=== PATIENT | female | born 1980 | race African-American/Black ===

== ENCOUNTER 2016-12-02 08:56 | Emergency (ER) | payer SELFPAY ==
--- NOTE | 2016-12-02 10:31 | ER Document Report ---
ED Eye Complaint - General Chief Complaint: Drainage from Eye Stated Complaint: EYE PROBLEMS Notes: Patient noticed her right eye getting red Nancy and when she awakened from sleep the next morning, she noticed some discharge from the right eye. No symptoms on the left side. Recalls no injury or object getting into her eye. Vision is normal. Does not wear contact lenses. Has not had a fever. No family history of glaucoma. TRAVEL OUTSIDE OF THE [place] IN LAST 30 DAYS: No - Related Data Allergies/Adverse Reactions: ketorolac tromethamine [From Toradol] Allergy (Severe, Verified 12/02/16 09:05) Difficulty breathing Past Medical History - Social History Smoking Status: Never Smoker Chew tobacco use (# tins/day): No Frequency of alcohol use: None Drug Abuse: None Family History: Reviewed & Not Pertinent Patient has suicidal ideation: No Patient has homicidal ideation: No Neurological Medical History: Reports: Hx Migraine Surgical Hx: Negative - Immunizations Hx Diphtheria, Pertussis, Tetanus Vaccination: Yes Hx Pneumococcal Vaccination: 09/05/00 Review of Systems - Review of Systems Constitutional: denies: Fever EENT: See HPI, Eye pain, Eye discharge. denies: Blurred vision, Tearing, Double vision, Nose discharge, Sinus discharge Respiratory: denies: Short of breath Gastrointestinal: denies: Abdominal pain, Diarrhea, Vomiting Physical Exam - Vital signs Vitals: Temp Pulse Resp BP Pulse Ox 98.5 F 72 16 109/67 100 12/02/16 09:02 12/02/16 09:02 12/02/16 09:02 12/02/16 09:02 12/02/16 09:02 Interpretation: Normal - Notes Notes: PHYSICAL EXAMINATION: GENERAL: Well-appearing, in no acute distress. HEAD: Atraumatic, normocephalic. EYES: Pupils equal round and reactive to light, extraocular movements intact. Right conjunctiva moderately injected. No current drainage. No foreign body seen in the cornea. Palpation of the right eye is not painful to the patient. Does not feel as if her pressure is increased in that I compared to the left eye. Staining with flurosein is negative. ENT: oropharynx clear without exudates. Moist mucous membranes. NECK: Normal range of motion, supple. LUNGS: Breath sounds clear and equal bilaterally. HEART: Regular rate and rhythm without murmurs. ABDOMEN: Soft, nontender. No guarding or rebound. SKIN: Warm, dry, no rashes. Course - Vital Signs Vital signs: Temp Pulse Resp BP Pulse Ox 98.0 F 70 16 110/65 100 12/02/16 10:34 12/02/16 10:34 12/02/16 10:34 12/02/16 10:34 12/02/16 10:34 Discharge - Discharge Clinical Impression: Conjunctivitis, right eye Qualifiers: Conjunctivitis type: acute Acute conjunctivitis type: unspecified Qualified Code(s): H10.31 - Unspecified acute conjunctivitis, right eye Condition: Stable Disposition: HOME, SELF-CARE Additional Instructions: CONJUNCTIVITIS: You have an infection in your eye, commonly known as "pink eye." Conjunctivitis causes redness, mild discomfort, itching, and mattering on the eyelids. It is very contagious, so you must be careful to wash your hands after touching your face so you don't pass the infection on to others. Conjunctivitis is caused by both viruses and bacteria. It usually responds quickly to treatment with antibiotic drops. These should be placed in the eye as prescribed (usually every three to four hours while you're awake). If you wear contact lenses, don't put them in your eyes until the infection is cleared and you are no longer using the drops (unless your doctor advises you otherwise). Should you develop increasing eye pain, severe swelling, decreased vision, or fail to improve as expected, please return for re-examination. EYEDROP USE: Eyedrops are most easily applied by pulling down on the cheek just below the lower eyelid. The lower lid will pop out to form a pouch into which you can drop the medicine. A small brief sting is not unusual, especially if the eye is reddened and irritated already. Use the drops exactly as recommended. You should see the doctor at once if there is a decrease in vision, swelling of the eye, or an increase in discomfort. ANTIBIOTIC THERAPY: You have been given an antibiotic prescription. It's important that you take all the medication, unless instructed otherwise by your physician. Failure to complete the entire course can result in relapse of your condition. Common side effects of antibiotics include nausea, intestinal cramping, or diarrhea. Women may develop vaginal yeast infections, and babies can get yeast (thrush) in the mouth following the use of antibiotics. Contact your physician if you develop significant side effects from this medication. Allergy to this antibiotic can result in hives, wheezing, faintness, or itching. If symptoms of allergy occur, stop the medication and call the doctor. Put one drop of the antibiotic medication in your eye every 3 hours while awake. FOLLOW-UP CARE: If you have been referred to a physician for follow-up care, call the physician s office for an appointment as you were instructed or within the next two days. If you experience worsening or a significant change in your symptoms, notify the physician immediately or return to the Emergency Department at any time for re-evaluation. Prescriptions: Polymyxin B Sulf/Trimethoprim [Polytrim Eye Drops] 1 drop OD Q3H #10 ml
[2016-12-02 10:35] VITALS: BP 110/65
== END 2016-12-02 10:35 | disposition home or self-care (01) ==
LOC: ER 08:56
DX: H10.31 Unspecified acute conjunctivitis, right eye (principal); H57.11 Ocular pain, right eye
CPT/HCPCS: 99282